=== PATIENT | female | born 1990 | race Caucasian/White ===

== ENCOUNTER 2017-08-01 18:26 | Emergency (ER) | payer SELFPAY ==
[~2017-08-01 18:26] MED LIST: AUG875 PO; BACDS PO; CIP500 PO; DICL500C66 PO; DOC100 PO; IBU800 PO; LIDOCAINE 4%; NAP500 PO; NO ROUTINE MEDS; OXYC1TAB54 PO; PER PO; PREN-127 PO; PRENATAL VITAMINS
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
[2017-08-01 18:31] VITALS: BP 142/93
[2017-08-01] MEDS ORDERED: AMOXICILLIN 500 MG CAP PO ONE (18:40)
[2017-08-01] MEDS ORDERED: AMOX875T60 PO (18:41)
== END 2017-08-01 18:45 | disposition home or self-care (01) ==
LOC: ER 18:32
DX: S01.511A Laceration without foreign body of lip, initial encounter (principal); L08.9 Local infection of the skin and subcutaneous tissue, unspecified
CPT/HCPCS: 99282